=== PATIENT | male | born 1990 | race Two or more races ===

== ENCOUNTER 2020-02-24 18:51 | Emergency (ER) | payer SELFPAY ==
[2020-02-24] MEDS ORDERED: Dexamethasone 4 MG Tab PO ONE (19:41)
--- NOTE | 2020-02-24 19:46 | EDM.PDOC ---
ED HPI GENERAL MEDICAL PROBLEM - General Chief Complaint: ENT Problem Stated Complaint: SORE THROAT, FEVER Time Seen by Provider: 02/24/20 19:29 - History of Present Illness INITIAL COMMENTS - FREE TEXT/NARRATIVE: History of present illness: [Patient presents with 3 days of sore throat and fever he denies any foreign travel no runny nose cough congestion or other symptoms. It is only sore throat and fever. He has not had any exposures that he is aware of no viral syndrome type symptoms are present healthy male no allergies nothing makes it better or worse] Review of systems: As per history of present illness and below otherwise all systems reviewed and negative. Past medical history: As per history of present illness and as reviewed below otherwise noncontributory. Surgical history: As per history of present illness and as reviewed below otherwise noncontributory. Social history: No reported history of drug or alcohol abuse. Family history: As per history of present illness and as reviewed below otherwise noncontributory. Physical exam: HEENT: Atraumatic, normocephalic, pupils reactive, negative for conjunctival pallor or scleral icterus, mucous membranes moist, throat clear, neck supple, nontender, trachea midline. There is tender anterior adenopathy there is pharyngeal erythema swelling and exudate present. Lungs: Clear to auscultation, breath sounds equal bilaterally, chest nontender. Heart: S1S2, regular, negative for clicks, rubs, or JVD. Abdomen: Soft, nondistended, nontender. Negative for masses or hepatosplenomegaly. Negative for costovertebral tenderness. Pelvis: Stable nontender. Genitourinary: Deferred. Rectal: Deferred. Extremities: Atraumatic, negative for cords or calf pain. Neurovascular unremarkable. Neuro: Awake, alert, oriented. Cranial nerves II through XII unremarkable. Cerebellum unremarkable. Motor and sensory unremarkable throughout. Exam nonfocal. Diagnostics: [] Therapeutics: [] Impression: Pharyngitis [] Plan: [] Decadron in the ED amoxicillin at home instructions given to the patient for salt water gargles Motrin Tylenol for pain. Definitive disposition and diagnosis as appropriate pending reevaluation and review of above. Throat Pain Score (Numeric/FACES): 10 - Related Data Allergies Allergy/AdvReac Type Severity Reaction Status Date / Time No Known Allergies Allergy Verified 02/24/20 19:33 Home Meds: Home Meds Amoxicillin 500 mg PO TID #30 tablet 02/24/20 [Rx] Past Medical History - Past Health History Medical/Surgical History: Denies Medical/Surgical History - Infectious Disease History Infectious Disease History: Reports: None Social & Family History - Family History Family Medical History: Noncontributory - Tobacco Use Smoking Status *Q: Current Every Day Smoker Years of Tobacco use: 6 Packs/Tins Daily: 0.2 ED ROS GENERAL - Review of Systems Review Of Systems: See Below ED EXAM, GENERAL - Physical Exam Exam: See Below Course - Vital Signs Last Recorded V/S: Last Vital Signs Temp 36.4 C 02/24/20 19:34 Pulse 98 02/24/20 19:34 Resp 18 02/24/20 19:34 BP 116/66 02/24/20 19:34 Pulse Ox 97 02/24/20 19:34 - Orders/Labs/Meds Orders: Active Orders 24 hr Category Date Time Status dexAMETHasone Med 02/24/20 19:41 Once 8 mg PO ONETIME ONE Departure - Departure Time of Disposition: 19:44 Disposition: Home, Self-Care 01 Condition: Good Clinical Impression: Pharyngitis - Discharge Information *PRESCRIPTION DRUG MONITORING PROGRAM REVIEWED*: Not Applicable *COPY OF PRESCRIPTION DRUG MONITORING REPORT IN PATIENT MONICA: Not Applicable Instructions: Pharyngitis, [id number] Referrals: PCP,None [Primary Care Provider] - Sepsis Event Note - Evaluation Sepsis Screening Result: No Definite Risk - Focused Exam Vital Signs: Vital Signs Temp Pulse Resp BP Pulse Ox 02/24/20 19:34 36.4 C 98 18 116/66 97 Date Exam was Performed: 02/24/20 Time Exam was Performed: 19:42 - My Orders Last 24 Hours: My Active Orders 02/24/20 19:41 dexAMETHasone 8 mg PO ONETIME ONE - Assessment/Plan Last 24 Hours: My Active Orders 02/24/20 19:41 dexAMETHasone 8 mg PO ONETIME ONE
== END 2020-02-24 20:18 | disposition home or self-care (01) ==
LOC: MW.ED 18:51
DX: J02.9 Acute pharyngitis, unspecified (principal); F17.210 Nicotine dependence, cigarettes, uncomplicated
CPT/HCPCS: 99283; J8540; 99282